=== PATIENT | male | born 1985 | race Caucasian/White ===

== ENCOUNTER 2020-07-27 01:10 | Emergency (ER) | payer SELFPAY ==
[~2020-07-27] VITALS: Ht 175.3 cm; Wt 99.8 kg
--- NOTE | 2020-07-27 01:10 | NUR ---
SEVERIANO LANDERS, PREBOOK. TAKEN TO CHAIR
[2020-07-27 01:18] VITALS: BP 149/97
--- NOTE | 2020-07-27 01:27 | NUR ---
Dr. Canchola examining patient.
[2020-07-27 01:37] VITALS: BP 149/97
--- NOTE | 2020-07-27 01:37 | NUR ---
PATIENT BIB [employer] [employer]. PATIENT EXAMINED BY DR. GRIFFITH. PATIENT MEDICALLY CLEARED AND RELEASED IN CUSTODY IN STABLE CONDITION. ORIGINAL PRE-BOOK FORM GIVEN TO OFFICER [facility] #[id number].
== END 2020-07-27 01:37 ==
LOC: MED 01:10
DX: D17.9 Benign lipomatous neoplasm, unspecified (principal); F17.200 Nicotine dependence, unspecified, uncomplicated; Z02.89 Encounter for other administrative examinations
CPT/HCPCS: 99283